=== PATIENT | female | born 1945 | race Caucasian/White ===

== ENCOUNTER 2025-03-26 09:36 | Outpatient (CLI) | payer OTHER ==
[2025-03-26 10:20] LABS: Estimated GFR - POC 45.0
== END 2025-03-26 09:37 | disposition home or self-care (01) ==
LOC: SCSMRI 09:36
PROVIDERS: ATTEND Otolaryngology Plastic Surgery within the Head & Neck
DX: H90.3 Sensorineural hearing loss, bilateral (principal); G93.89 Other specified disorders of brain
CPT/HCPCS: 36415; 70553; 76376; 82565